=== PATIENT | male | born 1965 | race Caucasian/White ===

== ENCOUNTER 2023-06-24 13:36 | Outpatient (CLI) | payer BC, SELFPAY ==
--- NOTE | ~2023-06-24 | US_ITS ---
EXAMINATION: US venous doppler LE RT DATE: 06/24/2023 14:09 INDICATION: Acute embolism and thrombosis of unspecified veins. Right lower limb erythema. On blood t hieriners. TECHNIQUE: Grayscale ultrasound images without and with compression and Doppler ultrasound images of the right lower extremity veins were obtained. COMPARISON: None. FINDINGS: The visualized portions of right common femoral vein, profunda (deep) femoral vein, femoral vein, pop liteal vein, and greater saphenous vein outflow are patent. There is thrombus in a right peroneal vei n and a right posterior tibial vein. IMPRESSION: 1. Deep vein thrombosis involving a right peroneal vein and a right posterior tibial vein. Reviewed, dictated and finalized at location A. [employer]
== END 2023-06-24 13:37 ==
LOC: MICIMG 13:37
PROVIDERS: PCP Nurse Practitioner Family; Visit Provider Nurse Practitioner Family
DX: I82.451 Acute embolism and thrombosis of right peroneal vein (principal); I82.441 Acute embolism and thrombosis of right tibial vein
CPT/HCPCS: 93971

== ENCOUNTER 2023-10-08 10:32 | Outpatient (CLI) | payer BC, SELFPAY ==
--- NOTE | ~2023-10-08 | US_ITS ---
EXAMINATION:US venous doppler LE RT INDICATION:History of DVT TECHNIQUE: Multiple grayscale, color flow and Doppler images of the right lower extremity deep venous systems were obtained and reviewed. COMPARISON:06/24/2023 FINDINGS: The common femoral, superficial femoral and popliteal veins demonstrate normal respiratory variation, augmentation and compressibility. Color flow is also seen within the posterior tibial, pe roneal, greater saphenous and profunda veins. IMPRESSION: 1: No lower extremity deep venous thrombosis. Reviewed, dictated and finalized at location B.
== END 2023-10-08 10:33 ==
LOC: MICIMG 10:33
PROVIDERS: PCP Nurse Practitioner Family; Visit Provider Nurse Practitioner Family
DX: I82.4Z1 Acute embolism and thrombosis of unspecified deep veins of right distal lower extremity (principal)
CPT/HCPCS: 93971

== ENCOUNTER 2023-10-18 10:29 | Outpatient (CLI) | payer BC, SELFPAY ==
[2023-10-18 11:04] LABS: Basophils Absolute Auto 0.1 K/mm3 (0.0-0.1); Eosinophils Absolute Auto 0.3 K/mm3 (0-0.3); Hematocrit 43.9 % (42.0-52.0); Hemoglobin 14.9 g/dL (14.0-18.0); Immature Granulocyte Absolute 0.03 K/mm3 (0.00-0.031); Immature Granulocyte Percent A 0.4 % (0-0.5); Lymphocytes Absolute Auto 2.18 K/mm3 (0.9-3.2); Lymphocytes Percent Auto 31.1 % (18.3-44.2); Mean Corpuscular HGB Conc 33.9 g/dl (32-36); Mean Corpuscular Hemoglobin 33.2 pg (26-34); Mean Corpuscular Volume 97.8 fl (80-100); Monocytes Absolute Auto 0.7 K/mm3 (0.1-0.6); Monocytes Percent Auto 10.1 % (2.6-8.5); Neutrophils Absolute Auto 3.8 K/mm3 (1.3-6.7); Neutrophils Percent Auto 53.4 % (45.5-73.1); Platelet Count Result 169 k/mm3 (150-375); Red Blood Count 4.49 M/mm3 (4.6-6.20); Red Cell Distribution Width 12.9 % (11.5-14.5)
[2023-10-21 11:49] LABS: Homocysteine 8.6 umol/L (<11.4)
[2023-10-23 04:23] LABS: Antithrombin III Activity 84 % normal (80-135)
[2023-10-26 01:23] LABS: Factor V (Leiden) Mutation NEGATIVE
== END 2023-10-18 10:30 | disposition home or self-care (01) ==
LOC: ANHLAB 10:43
PROVIDERS: Nurse Practitioner Family; PCP Nurse Practitioner Family; Visit Provider Internal Medicine Hematology & Oncology
DX: I82.4Z1 Acute embolism and thrombosis of unspecified deep veins of right distal lower extremity (principal); D68.59 Other primary thrombophilia
CPT/HCPCS: 36415; 81240; 81241; 83090; 85025; 85300; 85303; 85306; 86146